=== PATIENT | male | born 1995 | race American Indian/Alaskan Native ===

== ENCOUNTER 2018-12-18 16:31 | Emergency (ER) | payer SELFPAY ==
[2018-12-18 17:58] LABS: Bilirubin,Urine NEG (Negative); Blood,Urine NEG (Negative); Color,Urine Yellow (Yellow); Protein,Urine <15 mg/dL mg/dL (Negative); Urobilinogen,Urine < 2.0 mg/dL (<2.0)
[2018-12-18 18:07] LABS: Amphetamine Screen,Urine PRESUMPTIVE NEGATIVE; Benzodiazepines Screen,Urine PRESUMPTIVE NEGATIVE; Cannabinoid Screen,Urine PRESUMPTIVE NEGATIVE; Cocaine Screen,Urine PRESUMPTIVE NEGATIVE; Methadone Screen,Urine PRESUMPTIVE NEGATIVE; Opiate Screen,Urine PRESUMPTIVE NEGATIVE
[2018-12-18 18:13] LABS: Eosinophils # (Auto) 0.2 K/mm3 (0.0-0.4); Eosinophils % (Auto) 5.3 % (0.0-4.3); Hematocrit 41.8 % (35.5-45.6); Lymphocytes % (Auto) 42.6 % (13.4-35.0); Mean Corpuscular HGB Conc 34 % (32-34); Mean Corpuscular Volume 91 fl (84-94); Monocytes # (Auto) 0.6 K/mm3 (0.0-0.8); Monocytes % (Auto) 11.7 % (0.0-7.3); Platelet Count 183 K/mm3 (140-440); Red Blood Count 4.59 M/mm3 (3.65-5.03); Red Cell Distribution Width 14.3 % (13.2-15.2)
[2018-12-18 18:36] LABS: Alanine Aminotransferase 16 units/L (7-56); Albumin 4.3 g/dL (3.9-5); BUN/Creatinine Ratio 14; Blood Urea Nitrogen 13 mg/dL (9-20); Calcium 9.4 mg/dL (8.4-10.2); Hemolysis Index 15
--- NOTE | 2018-12-18 18:48 | Emergency Department Report ---
ED Psych HPI - General Chief Complaint: Psych Stated Complaint: EVALUATION Time Seen by Provider: 12/18/18 18:27 Source: patient, family Mode of arrival: Ambulatory Limitations: No Limitations - History of Present Illness Initial Comments: 22-year-old male with no significant past medical or surgical history presents to the hospital with his sister with complaint of psychosis. Patient states he feels fine and does not have complaints. He denies suicidal ideation or homicidal ideation. Denies any physical complaints. Patient is hyperverbal and with tangential thinking. Although he denies psychosis his sister says he is often found whispering to himself. His symptoms started last summer when he would be easily angered and speak off subject. Now symptoms are more persistent where he does not make sense when he speaks, he is having periods of refusing to bathe, and is paranoid and aggressive at times. She does not express any concerns for her safety, his safety, or safety of her family. She denies a family history of mental health disease. Patient denies drug abuse. - Related Data Home Medications Medication Instructions Recorded Confirmed Last Taken No Known Home Medications [No 12/18/18 12/18/18 Unknown Reported Home Medications] Allergies Allergy/AdvReac Type Severity Reaction Status Date / Time No Known Allergies Allergy Unverified 12/18/18 16:34 ED Review of Systems ROS: Stated complaint: EVALUATION Other details as noted in HPI Comment: All other systems reviewed and negative ED Past Medical Hx - Past Medical History Previous Medical History?: No - Surgical History Past Surgical History?: No - Social History Smoking Status: Current Every Day Smoker Substance Use Type: Alcohol, Marijuana - Medications Home Medications: Home Medications Medication Instructions Recorded Confirmed Last Taken Type No Known Home Medications [No 12/18/18 12/18/18 Unknown History Reported Home Medications] ED Physical Exam - General Limitations: No Limitations - Other Other exam information: General: No limitations, patient is alert in no acute distress Head exam: Atraumatic, normocephalic Eyes exam: Normal appearance, pupils equal reactive to light, extraocular movements intact ENT: Moist mucous membrane, normal oropharynx Neck exam: Normal inspection, full range of motion, no meningismus nontender Respiratory exam: Clear to auscultation bilateral, no wheezes, rales, crackles Cardiovascular: Normal rate and rhythm, normal heart sounds Abdomen: Soft, nondistended, and nontender, with normal bowel sounds, no rebound, or guarding Extremity: Full range of motion normal inspection no deformity Back: Normal Inspection, full range of motion, no tenderness Neurologic: Alert, oriented x3, cranial nerves intact, no motor or sensory deficit Psychiatric: Hyperverbal, tangential thinking Skin: Warm, dry, intact ED Course Vital Signs 12/18/18 12/18/18 16:51 20:35 Temperature 98.5 F 98.5 F Pulse Rate 79 68 Respiratory 18 18 Rate Blood Pressure 144/80 Blood Pressure 127/88 [Left] O2 Sat by Pulse 99 99 Oximetry ED Medical Decision Making - Lab Data Result diagrams: 12/18/18 18:00 12/18/18 18:00 Lab Results 12/18/18 12/18/18 12/18/18 Range/Units 17:25 17:25 18:00 WBC 4.7 (4.5-11.0) K/mm3 RBC 4.59 (3.65-5.03) M/mm3 Hgb 14.0 (11.8-15.2) gm/dl Hct 41.8 (35.5-45.6) % MCV 91 (84-94) fl MCH 31 (28-32) pg MCHC 34 (32-34) % RDW 14.3 (13.2-15.2) % Plt Count 183 (140-440) K/mm3 Lymph % (Auto) 42.6 H (13.4-35.0) % [place] % (Auto) 11.7 H (0.0-7.3) % Eos % (Auto) 5.3 H (0.0-4.3) % Baso % (Auto) 1.0 (0.0-1.8) % Lymph # 2.0 (1.2-5.4) K/mm3 [place] # 0.6 (0.0-0.8) K/mm3 Eos # 0.2 (0.0-0.4) K/mm3 Baso # 0.0 (0.0-0.1) K/mm3 Seg Neutrophils % 39.4 L (40.0-70.0) % Seg Neutrophils # 1.9 (1.8-7.7) K/mm3 Sodium (137-145) mmol/L Potassium (3.6-5.0) mmol/L Chloride (98-107) mmol/L Carbon Dioxide (22-30) mmol/L Anion Gap mmol/L BUN (9-20) mg/dL Creatinine (0.8-1.5) mg/dL Estimated GFR ml/min BUN/Creatinine Ratio % Glucose (75-100) mg/dL Calcium (8.4-10.2) mg/dL Total Bilirubin (0.1-1.2) mg/dL AST (5-40) units/L ALT (7-56) units/L Alkaline Phosphatase (35-129) units/L Total Protein (6.3-8.2) g/dL Albumin (3.9-5) g/dL Albumin/Globulin Ratio % Urine Color Yellow (Yellow) Urine Turbidity Clear (Clear) Urine pH 6.0 (5.0-7.0) Ur Specific [place] 1.018 (1.003-1.030) Urine Protein <15 mg/dl (Negative) mg/dL Urine Glucose (UA) Neg (Negative) mg/dL Urine Ketones Neg (Negative) mg/dL Urine Blood Neg (Negative) Urine Nitrite Neg (Negative) Urine Bilirubin Neg (Negative) Urine Urobilinogen < 2.0 (<2.0) mg/dL Ur Leukocyte Esterase Neg (Negative) Urine WBC (Auto) 2.0 (0.0-6.0) /HPF Urine RBC (Auto) 1.0 (0.0-6.0) /HPF Salicylates (2.8-20.0) mg/dL Urine Opiates Screen Presumptive negative Urine Methadone Screen Presumptive negative Acetaminophen (10.0-30.0) ug/mL Ur Barbiturates Screen Presumptive negative Ur Phencyclidine Scrn Presumptive negative Ur Amphetamines Screen Presumptive negative U Benzodiazepines Scrn Presumptive negative Urine Cocaine Screen Presumptive negative U Marijuana (THC) Screen Presumptive negative Drugs of Abuse Note Disclamer Plasma/Serum Alcohol (0-0.07) % 12/18/18 12/18/18 12/18/18 Range/Units 18:00 18:00 18:00 WBC (4.5-11.0) K/mm3 RBC (3.65-5.03) M/mm3 Hgb (11.8-15.2) gm/dl Hct (35.5-45.6) % MCV (84-94) fl MCH (28-32) pg MCHC (32-34) % RDW (13.2-15.2) % Plt Count (140-440) K/mm3 Lymph % (Auto) (13.4-35.0) % [place] % (Auto) (0.0-7.3) % Eos % (Auto) (0.0-4.3) % Baso % (Auto) (0.0-1.8) % Lymph # (1.2-5.4) K/mm3 [place] # (0.0-0.8) K/mm3 Eos # (0.0-0.4) K/mm3 Baso # (0.0-0.1) K/mm3 Seg Neutrophils % (40.0-70.0) % Seg Neutrophils # (1.8-7.7) K/mm3 Sodium 143 (137-145) mmol/L Potassium 4.2 (3.6-5.0) mmol/L Chloride 108.4 H (98-107) mmol/L Carbon Dioxide 24 (22-30) mmol/L Anion Gap 15 mmol/L BUN 13 (9-20) mg/dL Creatinine 0.9 (0.8-1.5) mg/dL Estimated GFR > 60 ml/min BUN/Creatinine Ratio 14 % Glucose 85 (75-100) mg/dL Calcium 9.4 (8.4-10.2) mg/dL Total Bilirubin 0.70 (0.1-1.2) mg/dL AST 16 (5-40) units/L ALT 16 (7-56) units/L Alkaline Phosphatase 85 (35-129) units/L Total Protein 6.7 (6.3-8.2) g/dL Albumin 4.3 (3.9-5) g/dL Albumin/Globulin Ratio 1.8 % Urine Color (Yellow) Urine Turbidity (Clear) Urine pH (5.0-7.0) Ur Specific [place] (1.003-1.030) Urine Protein (Negative) mg/dL Urine Glucose (UA) (Negative) mg/dL Urine Ketones (Negative) mg/dL Urine Blood (Negative) Urine Nitrite (Negative) Urine Bilirubin (Negative) Urine Urobilinogen (<2.0) mg/dL Ur Leukocyte Esterase (Negative) Urine WBC (Auto) (0.0-6.0) /HPF Urine RBC (Auto) (0.0-6.0) /HPF Salicylates < 0.3 L (2.8-20.0) mg/dL Urine Opiates Screen Urine Methadone Screen Acetaminophen (10.0-30.0) ug/mL Ur Barbiturates Screen Ur Phencyclidine Scrn Ur Amphetamines Screen U Benzodiazepines Scrn Urine Cocaine Screen U Marijuana (THC) Screen Drugs of Abuse Note Plasma/Serum Alcohol < 0.01 (0-0.07) % 12/18/18 Range/Units 18:00 WBC (4.5-11.0) K/mm3 RBC (3.65-5.03) M/mm3 Hgb (11.8-15.2) gm/dl Hct (35.5-45.6) % MCV (84-94) fl MCH (28-32) pg MCHC (32-34) % RDW (13.2-15.2) % Plt Count (140-440) K/mm3 Lymph % (Auto) (13.4-35.0) % [place] % (Auto) (0.0-7.3) % Eos % (Auto) (0.0-4.3) % Baso % (Auto) (0.0-1.8) % Lymph # (1.2-5.4) K/mm3 [place] # (0.0-0.8) K/mm3 Eos # (0.0-0.4) K/mm3 Baso # (0.0-0.1) K/mm3 Seg Neutrophils % (40.0-70.0) % Seg Neutrophils # (1.8-7.7) K/mm3 Sodium (137-145) mmol/L Potassium (3.6-5.0) mmol/L Chloride (98-107) mmol/L Carbon Dioxide (22-30) mmol/L Anion Gap mmol/L BUN (9-20) mg/dL Creatinine (0.8-1.5) mg/dL Estimated GFR ml/min BUN/Creatinine Ratio % Glucose (75-100) mg/dL Calcium (8.4-10.2) mg/dL Total Bilirubin (0.1-1.2) mg/dL AST (5-40) units/L ALT (7-56) units/L Alkaline Phosphatase (35-129) units/L Total Protein (6.3-8.2) g/dL Albumin (3.9-5) g/dL Albumin/Globulin Ratio % Urine Color (Yellow) Urine Turbidity (Clear) Urine pH (5.0-7.0) Ur Specific [place] (1.003-1.030) Urine Protein (Negative) mg/dL Urine Glucose (UA) (Negative) mg/dL Urine Ketones (Negative) mg/dL Urine Blood (Negative) Urine Nitrite (Negative) Urine Bilirubin (Negative) Urine Urobilinogen (<2.0) mg/dL Ur Leukocyte Esterase (Negative) Urine WBC (Auto) (0.0-6.0) /HPF Urine RBC (Auto) (0.0-6.0) /HPF Salicylates (2.8-20.0) mg/dL Urine Opiates Screen Urine Methadone Screen Acetaminophen < 5.0 L (10.0-30.0) ug/mL Ur Barbiturates Screen Ur Phencyclidine Scrn Ur Amphetamines Screen U Benzodiazepines Scrn Urine Cocaine Screen U Marijuana (THC) Screen Drugs of Abuse Note Plasma/Serum Alcohol (0-0.07) % - Radiology Data Radiology results: report reviewed PROCEDURE: CT HEAD/BRAIN WO CON TECHNIQUE: Computerized tomography of the head was performed without contrast material. CT DOSE LENGTH PRODUCT: 920.5 mGycm HISTORY: new onset psychosis COMPARISONS: None . FINDINGS: Skull and scalp: Normal . Paranasal sinuses: Left maxillary sinus mucosal thickening. . Ventricles and subarachnoid spaces: Normal . Cerebrum: No evidence of hemorrhage, acute infarction or mass . Incidentally i dentified cavum septum lucidum. Cerebellum and brainstem: No evidence of hemorrhage, acute infarction or mass . Vasculature: Normal . Other: None . ASPECTS: 10 IMPRESSION: No acute transcortical infarct, bleed, or mass identified. Incidentally identified cavum septum pellucidum, normal anatomic variant.. - Medical Decision Making 1013 and transfer form signed due to acute worsening undiagnosed psychiatric disorder Patient is medically cleared - Differential Diagnosis new-onset schizophrenia, psychosis, bipolar, substance abuse Critical Care Time: No Critical care attestation.: If time is entered above; I have spent that time in minutes in the direct care of this critically ill patient, excluding procedure time. ED Disposition Clinical Impression: Psychosis, Medical clearance for psychiatric admission, Disorganized thought process Disposition: DC/TX-65 PSY HOSP/PSY UNIT Is pt being admited?: No Condition: Stable Time of Disposition: :46 (awaiting acceptance)
--- NOTE | 2018-12-18 20:01 | Cat Scan Report ---
PROCEDURE: CT HEAD/BRAIN WO CON TECHNIQUE: Computerized tomography of the head was performed without contrast material. CT DOSE LENGTH PRODUCT: 920.5 mGycm HISTORY: new onset psychosis COMPARISONS: None . FINDINGS: Skull and scalp: Normal . Paranasal sinuses: Left maxillary sinus mucosal thickening. . Ventricles and subarachnoid spaces: Normal . Cerebrum: No evidence of hemorrhage, acute infarction or mass . Incidentally identified cavum septum lucidum. Cerebellum and brainstem: No evidence of hemorrhage, acute infarction or mass . Vasculature: Normal . Other: None . ASPECTS: 10 IMPRESSION: No acute transcortical infarct, bleed, or mass identified. Incidentally identified cavum septum pellucidum, normal anatomic variant.. This document is electronically signed by Laila Bansal MD., December 18 2018 07:59:17 PM ET
--- NOTE | 2018-12-19 13:27 | Consultation ---
History of Present Illness - Reason for Consult Consult date: 12/19/18 Reason for consult: Initial Psychiatric Evaluation - Chief Complaint Chief complaint: "I don't know why I'm here " - History of Present Psychiatric Illness Patient is a 22-year-old male with no significant past medical or surgical history presents to the hospital with his sister with complaint of psychosis. Patient states he feels fine and does not have complaints. He denies suicidal ideation or homicidal ideation. Denies any physical complaints. Today the patient is cooperative but anxious during the assessment. He presents with hyperverbal speech and tangential/disorganized thought process. Patient answers to questions are inappropriate and not logical. He states " someone brought me here and I don't know why. Am I able to take [employer]? I'm a civil person. I'm talking business." Thoughts and behavior is bizarre. Insight is extremely poor. He endorses paranoid/grandiose delusions. Later patient discusses the FBI/government and being brought to the hospital in a helicopter. He denies SI/HI's and A/VH's. Current Psychiatric Medications: Patient denies. Past Psychiatric History: No previous psychiatric diagnosis; no previous inpatient psychiatric hospitalizations; no outpatient psychiatrist; no suicide attempts. Past Medication Trials: Patient denies. History of Alcohol/Drug Abuse: Patient denies drug/alcohol abuse. UDS negative. History of Trauma/Abuse: Patient denies history of trauma/abuse. Patient denies sexual, physical, and mental abuse. Social History: 11th grade- highest level of education; unable to tell provider who/where he resides; no children; no pending legal issues. Family History of Psychiatric Illness/Substance Abuse: Patient denies. Medications and Allergies Allergies Allergy/AdvReac Type Severity Reaction Status Date / Time No Known Allergies Allergy Unverified 12/18/18 16:34 Home Medications Medication Instructions Recorded Confirmed Last Taken Type No Known Home Medications [No 12/18/18 12/18/18 Unknown History Reported Home Medications] Mental Status Exam - Vital signs Last Vital Signs Temp 98.3 F 12/19/18 08:04 Pulse 68 12/19/18 08:04 Resp 18 12/19/18 08:04 BP 130/86 12/19/18 08:04 Pulse Ox 100 12/19/18 08:04 - Exam Narrative exam: Mental Status Exam: Appearance: poorly groomed- green hospital gown Behavior: cooperative Speech: rapid speech/ pressured Mood: " I feel good" Affect: labile, bizarre Thought Process: tangential, disorganized circumstantial Thought Content: denies SI/HI's and AVH's; + paranoid/grandiose delusions Cognition: Average Psychomotor Activity: Ambulatory Insight: poor Judgment: variable Results Result Diagrams: 12/18/18 18:00 12/18/18 18:00 Abnormal lab results 12/18/18 12/18/18 12/18/18 Range/Units 18:00 18:00 18:00 Lymph % (Auto) 42.6 H (13.4-35.0) % [place] % (Auto) 11.7 H (0.0-7.3) % Eos % (Auto) 5.3 H (0.0-4.3) % Seg Neutrophils % 39.4 L (40.0-70.0) % [place] 108.4 H (98-107) mmol/L Salicylates < 0.3 L (2.8-20.0) mg/dL Acetaminophen (10.0-30.0) ug/mL 12/18/18 Range/Units 18:00 Lymph % (Auto) (13.4-35.0) % [place] % (Auto) (0.0-7.3) % Eos % (Auto) (0.0-4.3) % Seg Neutrophils % (40.0-70.0) % [place]lor[place] (98-107) mmol/L Salicylates (2.8-20.0) mg/dL Acetaminophen < 5.0 L (10.0-30.0) ug/mL All other labs normal. Assessment and Plan Assessment and plan: Impression: Psychosis Unspecified. Today the patient is cooperative but anxious during the assessment. He presents with disorganized thought process, hyperverbal speech, paranoid/grandiose delusions. Insight is poor. UDS is negative. Recommendation/Plan: 1. Continue 1013. 2. At this time patient refuses medication. He prefers talk therapy. Will not consent to medication. Recommendation: Risperdal 0.5mg po BID psychosis. 3. Will attempt to gain collateral to determine proper disposition. Disposition: Will refer to inpatient psychiatric services. Will staff with Dr. Criss Wang.
--- NOTE | 2018-12-20 17:05 | Progress Note ---
Subjective - Reason for Consult Consult date: 12/20/18 Reason for consult: Psychiatric Follow-up Evaluation - Chief Complaint Chief complaint: "sane and conscious " Patient is a 22-year-old male that presents to the emergency room with psychosis. Today the patient is cooperative but anxious during the assessment. He continues to have tangential/disorganized thought process. Responses/answers to questions are inappropriate/ not logical. He verbalizes " I'm on the annual system, I'm a civic. Are you able to look up everything about me in the database. " He presents with hyperverbal speech, tangential/disorganized thought process, and paranoid delusions. He reports appropriate sleep and appetite. Patient insight is extremely poor. He denies SI/HI's and A/VH's. Mental Status Exam - Vital signs Last Vital Signs Temp 99.2 F 12/20/18 15:26 Pulse 75 12/20/18 15:26 Resp 18 12/20/18 15:26 BP 109/78 12/20/18 15:26 Pulse Ox 99 12/20/18 15:26 - Exam Narrative exam: Mental Status Exam: Appearance: poorly groomed- [facility] gown Behavior: cooperative Speech: rapid speech/ pressured Mood: " I feel sane"; anxious Affect: labile, bizarre Thought Process: tangential, disorganized, circumstantial Thought Content: denies SI/HI's and AVH's; + paranoid/grandiose delusions Cognition: Average Psychomotor Activity: Ambulatory Insight: poor Judgment: variable Assessment and Plan Impression: Psychosis Unspecified. Today the patient is cooperative but anxious during the assessment. He presents with disorganized thought process, hyperverbal speech, paranoid/grandiose delusions. Insight is poor. UDS is negative. Recommendation/Plan: 1. Continue 1013. 2. At this time patient continues to refuse medication. He prefers talk therapy. Will not consent to medication. Recommendation: Risperdal 0.5mg po BID psychosis. 3. Will attempt to gain collateral to determine proper disposition. Disposition: Patient accepted to [facility]. Awaiting transport time. Will staff with Dr. Criss Wang.
[2018-12-21 13:28] VITALS: BP 110/68
--- NOTE | 2018-12-21 14:43 | Progress Note ---
Subjective - Reason for Consult Consult date: 12/21/18 Reason for consult: follow up - Chief Complaint Chief complaint: "Where am I going " Patient is a 22-year-old male that presents to the emergency room with psychosis. Today the patient is cooperative but anxious during the assessment. He continues to have tangential/disorganized thought process. Responses/answers to questions are inappropriate/ not logical. He presents with hyperverbal speech, tangential/disorganized thought process, and paranoid delusions. He reports appropriate sleep and appetite. Patient insight is poor. He denies SI/HI's and A/VH's. He wants to know where he is going. Mental Status Exam - Vital signs Last Vital Signs Temp 97.6 F 12/21/18 13:00 Pulse 52 L 12/21/18 13:00 Resp 15 12/21/18 13:00 BP 110/68 12/21/18 13:00 Pulse Ox 99 12/21/18 13:00 Assessment and Plan Mental Status Exam: [facility] Behavior: cooperative Speech: rapid speech/ pressured Mood: irritable Affect: labile Thought Process: tangential, disorganized, circumstantial Thought Content: denies SI/HI's and AVH's; + paranoid/grandiose delusions Cognition: Average Psychomotor Activity: Ambulatory Insight: poor Judgment: variable Assessment and Plan Impression: Psychosis Unspecified. Today the patient is cooperative but anxious during the assessment. He presents with disorganized thought process, hyperverbal speech, paranoid/grandiose delusions. Insight is poor. UDS is negative. Recommendation/Plan: 1. Continue 1013. 2. At this time patient continues to refuse medication. Will not consent to medication. Recommendation: Risperdal 0.5mg po BID psychosis. 3. Will attempt to gain collateral to determine proper disposition. Disposition: Patient accepted to [facility]. Awaiting transport time. Will staff with Dr. Criss Wang.
== END 2018-12-21 14:52 ==
LOC: EEVIPCON 16:31 → ED 16:31
DX: F29 Unspecified psychosis not due to a substance or known physiological condition (principal)
CPT/HCPCS: 36415; 70450; 80053; 80307; 81001; 85025; 99285; G0480; 80320